=== PATIENT | female | born 1965 | race American Indian/Alaskan Native ===

== ENCOUNTER 2020-11-05 21:54 | Emergency (ER) | payer MEDICARE ==
[2020-11-06 01:56] LABS: Basophils % (Auto) 0.4 % (0.0-1.8); Eosinophils # (Auto) 0.1 K/mm3 (0.0-0.4); Eosinophils % (Auto) 0.6 % (0.0-4.3); Hematocrit 36.7 % (30.3-42.9); Hemoglobin 12.1 gm/dl (10.1-14.3); Lymphocytes # (Auto) 2.8 K/mm3 (1.2-5.4); Lymphocytes % (Auto) 23.7 % (13.4-35.0); Mean Corpuscular HGB Conc 33 % (30-34); Mean Corpuscular Volume 90 fl (79-97); Monocytes # (Auto) 0.6 K/mm3 (0.0-0.8); Monocytes % (Auto) 5.2 % (0.0-7.3); Platelet Count 350 K/mm3 (140-440); Red Cell Distribution Width 16.6 % (13.2-15.2)
[2020-11-06 02:13] LABS: Blood Urea Nitrogen 16 mg/dL (7-17); Calcium 9.6 mg/dL (8.4-10.2); Hemolysis Index 0
[2020-11-06 02:22] LABS: BUN/Creatinine Ratio 27
[2020-11-06 03:30] LABS: Bacteria,Urine 1+ /HPF (Negative); Bilirubin,Urine NEG (Negative); Blood,Urine SM (Negative); Color,Urine Straw (Yellow); Mucus,Urine FEW /HPF; Protein,Urine <15 mg/dL mg/dL (Negative); Urobilinogen,Urine < 2.0 mg/dL (<2.0)
[2020-11-06 03:44] LABS: Amphetamine Screen,Urine PRESUMPTIVE NEGATIVE; Benzodiazepines Screen,Urine PRESUMPTIVE NEGATIVE; Cannabinoid Screen,Urine PRESUMPTIVE NEGATIVE; Cocaine Screen,Urine PRESUMPTIVE POSITIVE; Methadone Screen,Urine PRESUMPTIVE NEGATIVE; Opiate Screen,Urine PRESUMPTIVE NEGATIVE
--- NOTE | 2020-11-06 09:26 | Emergency Department Report ---
ED General Adult HPI - General Chief complaint: Overdose Stated complaint: OVERDOSE PUI?: No Time Seen by Provider: 11/06/20 08:53 Source: patient, EMS ( EMS documentation not available at time of chart dictation ), RN notes reviewed, old records reviewed Mode of arrival: Stretcher Limitations: Other (Patient does not recall how she got to the emergency room.) - History of Present Illness Initial comments: The patient was evaluated in the emergency department for symptoms described in the history of present illness. He/she was evaluated in the context of the global COVID-19 pandemic, which necessitated consideration that the patient might be at risk for infection with the virus that causes COVID-19. Institutional protocols and algorithms that pertain to the evaluation of patients at risk for COVID-19 are in a state of rapid change based on information released by regulatory bodies including the CDC and federal and state organizations. These policies and algorithms were followed during the patient's care in the emergency department. Please note that these policies, procedures and recommendations changed on a rapid basis. This is a 55-year-old female. She typically follows at [facility]. She reportedly has a history of breast cancer and hypertension. Today, patient is brought to the hospital by emergency medical services as per nursing documentation. The patient was reportedly found unresponsive at home, was given Narcan by EMS, and woke up. She had admitted that she was smoking cocaine all day. White substance was noted around the patient. The patient is not currently accompanied by friends or family at this time for additional information, collateral information. The patient denies physical pain at this time. She tells me that she "think I passed out", but she is not certain. She denies travel, surgery, oral contraceptive use, posterior leg pain and leg swelling. She denies headache, neck pain, chest pain, abdominal pain and shortness of breath. She tells me that she was not overdosing on anything, that she is not homicidal or suicidal, and that she is not experiencing voices or hallucinations. She tells me that she lives at home with family. She also tells me that she is hungry, and would like to eat at this time. Patient had an echocardiogram at this hospital in 2014, showed EF of 65%. Patient also had CTA of the chest in 2015, negative for pulmonary embolism. -: Sudden Consistency: now resolved Improves with: none Worsens with: none - Related Data Previous Rx's Medication Instructions Recorded Last Taken Type amLODIPine 5 mg PO DAILY #30 tab 07/23/15 07/27/15 Rx Loratadine (Nf) [Claritin (Nf)] 10 mg PO QDAY tablet 08/03/15 Unknown Rx Metoprolol [Lopressor TAB] 25 mg PO BID #60 tablet 08/03/15 Unknown Rx amLODIPine 5 mg PO DAILY #30 tablet 08/03/15 Unknown Rx Amlodipine Besylate [Norvasc] 5 mg PO QDAY #30 tablet 11/06/20 Unknown Rx Naloxone HCl [Narcan Nasal Newport] 4 mg NS PRN PRN #2 spray 11/06/20 Unknown Rx Allergies Allergy/AdvReac Type Severity Reaction Status Date / Time cephalexin monohydrate Allergy Rash Verified 07/29/15 11:37 [From Keflex] ED Review of Systems ROS: Stated complaint: OVERDOSE Other details as noted in HPI Constitutional: denies: fever Eyes: denies: eye discharge ENT: denies: congestion Respiratory: denies: wheezing Cardiovascular: syncope. denies: chest pain Gastrointestinal: denies: abdominal pain Genitourinary: denies: dysuria Musculoskeletal: denies: back pain Neurological: confusion Psychiatric: denies: homicidal thoughts, suicidal thoughts Hematological/Lymphatic: denies: easy bleeding ED Past Medical Hx - Past Medical History Previous Medical History?: Yes Hx Hypertension: Yes Hx Congestive Heart Failure: No Hx Diabetes: No Hx of Cancer: Yes (Left Breast) Hx Asthma: No Hx COPD: No - Surgical History Past Surgical History?: No - Social History Smoking Status: Never Smoker Substance Use Type: None - Medications Home Medications: Home Medications Medication Instructions Recorded Confirmed Last Taken Type amLODIPine 5 mg PO DAILY #30 tab 07/23/15 07/27/15 07/27/15 Rx Loratadine (Nf) [Claritin (Nf)] 10 mg PO QDAY tablet 08/03/15 Unknown Rx Metoprolol [Lopressor TAB] 25 mg PO BID #60 tablet 08/03/15 Unknown Rx amLODIPine 5 mg PO DAILY #30 tablet 08/03/15 Unknown Rx Amlodipine Besylate [Norvasc] 5 mg PO QDAY #30 tablet 11/06/20 Unknown Rx Naloxone HCl [Narcan Nasal [place]] 4 mg NS PRN PRN #2 spray 11/06/20 Unknown Rx ED Physical Exam - General Limitations: No Limitations, Other (Patient does not remember specifically what happened) General appearance: alert, in no apparent distress - Head Head exam: Present: atraumatic, normocephalic - Eye Eye exam: Present: normal appearance, PERRL, EOMI, other (Visual acuity intact to finger counting, color perception, reading at a close distance). Absent: nystagmus - ENT ENT exam: Present: normal exam, normal orophraynx, mucous membranes moist, normal external ear exam - Neck Neck exam: Present: normal inspection, full ROM. Absent: tenderness, meningismus - Respiratory Respiratory exam: Present: normal lung sounds bilaterally. Absent: respiratory distress, wheezes, rales, rhonchi, stridor, decreased breath sounds - Cardiovascular Cardiovascular Exam: Present: regular rate, normal rhythm, normal heart sounds. Absent: bradycardia, tachycardia, irregular rhythm, systolic murmur, diastolic murmur, rubs, gallop - GI/Abdominal GI/Abdominal exam: Present: soft, normal bowel sounds. Absent: distended, tenderness, guarding, rebound, rigid, pulsatile mass - Extremities Exam Extremities exam: Present: normal inspection, full ROM, other (2+ pulses noted in the bilateral upper and lower extremities. There is no palpable cord. negative Homans sign. Muscular compartments are soft. The pelvis is stable.). Absent: pedal edema, calf tenderness - Back Exam Back exam: Present: normal inspection, full ROM. Absent: tenderness, CVA tenderness (R), CVA tenderness (L), paraspinal tenderness, vertebral tenderness - Neurological Exam Neurological exam: Present: alert, oriented X3, normal gait, other (No facial droop. Tongue midline. Extraocular movements intact bilaterally. Facial sensation intact to light touch in V1, V2, V3 distribution bilaterally. 5 and a 5 strength in 4 extremities. Sensation intact to light touch in 4 extremities .). Absent: motor sensory deficit - Psychiatric Psychiatric exam: Absent: homicidal ideation, suicidal ideation - Skin Skin exam: Present: warm, dry, intact, normal color. Absent: rash ED Course Vital Signs 11/06/20 11/06/20 11/06/20 01:01 09:16 10:00 Temperature 98.0 F Pulse Rate 95 H 93 H 124 H Respiratory 18 21 Rate Blood Pressure 132/79 177/100 178/100 Blood Pressure [Left] O2 Sat by Pulse 97 99 Oximetry 11/06/20 11/06/20 11/06/20 10:03 10:28 12:00 Temperature Pulse Rate 90 96 H Respiratory 18 18 16 Rate Blood Pressure 143/83 Blood Pressure 178/100 [Left] O2 Sat by Pulse 97 98 96 Oximetry 11/06/20 11/06/20 12:16 12:30 Temperature Pulse Rate 99 H 94 H Respiratory 15 16 Rate Blood Pressure 143/83 143/83 Blood Pressure [Left] O2 Sat by Pulse 98 97 Oximetry - Reevaluation(s) Reevaluation #1: 11/06/20 11:06 Differential diagnosis, including but not limited to: Overdose, accidental, resolved, orthostasis, vagal event, dehydration, intracranial injury Assessment and plan: 55-year-old female with chief complaint of resolved syncope, who is not currently tachycardic, tachypneic or hypoxic, who nursing team indicates was found unresponsive at home, given Narcan, woke up, and admitted to cocaine consumption. Patient has been observed in this department for hours. She is currently awake, oriented, clinically sober, walking with a steady gait, with a GCS of 15. There is no external sign of extracranial trauma, or neck pain, tenderness. However, given that we do not know if the patient had a fall or closed head injury, will obtain CT scan of the brain to exclude intracranial lesion. Patient counseled to not drive or operate motor vehicles for the next 6 months. Counseled to avoid recreational drug consumption. Patient will be discharged with a Narcan prescription. Patient is alert, oriented, and sober, and exhibits decision-making capacity at this time, and therefore, does not meet criteria for involuntary hold, confinement or 1013. Elevated blood pressure chronic. Patient has taken Norvasc in the past. She will be discharged with a Norvasc prescription, and given a dose of Norvasc while here in the emergency room. She does not appear to be acutely decompensated from a hypertension perspective. 11/06/20 11:09 11/06/20 11:[address] scan of the brain negative for acute findings. No further events noted. Resting comfortably in stretcher, and in no acute distr ess. Suitable for discharge at this time. ED Medical Decision Making - Lab Data Result diagrams: 11/06/20 01:41 11/06/20 01:41 Vital Signs 11/06/20 11/06/20 11/06/20 01:01 09:16 10:03 Temperature 98.0 F Pulse Rate 95 H 93 H Respiratory 18 21 18 Rate Blood Pressure 132/79 177/100 O2 Sat by Pulse 97 99 97 Oximetry Lab Results 11/06/20 11/06/20 11/06/20 Range/Units 01:26 01:26 01:41 WBC (4.5-11.0) K/mm3 RBC (3.65-5.03) M/mm3 Hgb (10.1-14.3) gm/dl Hct (30.3-42.9) % MCV (79-97) fl MCH (28-32) pg MCHC (30-34) % RDW (13.2-15.2) % Plt Count (140-440) K/mm3 Lymph % (Auto) (13.4-35.0) % Lares % (Auto) (0.0-7.3) % Eos % (Auto) (0.0-4.3) % Baso % (Auto) (0.0-1.8) % Lymph # (Auto) (1.2-5.4) K/mm3 Lares # (Auto) (0.0-0.8) K/mm3 Eos # (Auto) (0.0-0.4) K/mm3 Baso # (Auto) (0.0-0.1) K/mm3 Seg Neutrophils % (40.0-70.0) % Seg Neutrophils # (1.8-7.7) K/mm3 Sodium (137-145) mmol/L Potassium (3.6-5.0) mmol/L Chloride (98-107) mmol/L Carbon Dioxide (22-30) mmol/L Anion Gap mmol/L BUN (7-17) mg/dL Creatinine (0.6-1.2) mg/dL Estimated GFR ml/min BUN/Creatinine Ratio % Glucose (65-100) mg/dL Calcium (8.4-10.2) mg/dL Urine Color Straw (Yellow) Urine Turbidity Clear (Clear) Urine pH 5.0 (5.0-7.0) Ur Specific Newell 1.010 (1.003-1.030) Urine Protein <15 mg/dl (Negative) mg/dL Urine Glucose (UA) Neg (Negative) mg/dL Urine Ketones Neg (Negative) mg/dL Urine Blood Sm (Negative) Urine Nitrite Neg (Negative) Urine Bilirubin Neg (Negative) Urine Urobilinogen < 2.0 (<2.0) mg/dL Ur Leukocyte Esterase Tr (Negative) Urine WBC (Auto) 5.0 (0.0-6.0) /HPF Urine RBC (Auto) 3.0 (0.0-6.0) /HPF U Epithel Cells (Auto) 3.0 (0-13.0) /HPF Urine Bacteria (Auto) 1+ (Negative) /HPF Urine Mucus Few /HPF Salicylates < 0.3 L (2.8-20.0) mg/dL Urine Opiates Screen Presumptive negative Urine Methadone Screen Presumptive negative Acetaminophen (10.0-30.0) ug/mL Ur Barbiturates Screen Presumptive negative Ur Phencyclidine Scrn Presumptive negative Ur Amphetamines Screen Presumptive negative U Benzodiazepines Scrn Presumptive negative Urine Cocaine Screen Presumptive positive U Marijuana (THC) Screen Presumptive negative Drugs of Abuse Note Disclamer Plasma/Serum Alcohol (0-0.07) % 11/06/20 11/06/20 11/06/20 Range/Units 01:41 01:41 01:41 WBC (4.5-11.0) K/mm3 RBC (3.65-5.03) M/mm3 Hgb (10.1-14.3) gm/dl Hct (30.3-42.9) % MCV (79-97) fl MCH (28-32) pg MCHC (30-34) % RDW (13.2-15.2) % Plt Count (140-440) K/mm3 Lymph % (Auto) (13.4-35.0) % Lares % (Auto) (0.0-7.3) % Eos % (Auto) (0.0-4.3) % Baso % (Auto) (0.0-1.8) % Lymph # (Auto) (1.2-5.4) K/mm3 Lares # (Auto) (0.0-0.8) K/mm3 Eos # (Auto) (0.0-0.4) K/mm3 Baso # (Auto) (0.0-0.1) K/mm3 Seg Neutrophils % (40.0-70.0) % Seg Neutrophils # (1.8-7.7) K/mm3 Sodium 136 L (137-145) mmol/L Potassium 3.5 L (3.6-5.0) mmol/L Chloride 95.9 L (98-107) mmol/L Carbon Dioxide 23 (22-30) mmol/L Anion Gap 21 mmol/L BUN 16 (7-17) mg/dL Creatinine 0.6 (0.6-1.2) mg/dL Estimated GFR > 60 ml/min BUN/Creatinine Ratio 27 % Glucose 125 H (65-100) mg/dL Calcium 9.6 (8.4-10.2) mg/dL Urine Color (Yellow) Urine Turbidity (Clear) Urine pH (5.0-7.0) Ur Specific Newell (1.003-1.030) Urine Protein (Negative) mg/dL Urine Glucose (UA) (Negative) mg/dL Urine Ketones (Negative) mg/dL Urine Blood (Negative) Urine Nitrite (Negative) Urine Bilirubin (Negative) Urine Urobilinogen (<2.0) mg/dL Ur Leukocyte Esterase (Negative) Urine WBC (Auto) (0.0-6.0) /HPF Urine RBC (Auto) (0.0-6.0) /HPF U Epithel Cells (Auto) (0-13.0) /HPF Urine Bacteria (Auto) (Negative) /HPF Urine Mucus /HPF Salicylates (2.8-20.0) mg/dL Urine Opiates Screen Urine Methadone Screen Acetaminophen 5.0 L (10.0-30.0) ug/mL Ur Barbiturates Screen Ur Phencyclidine Scrn Ur Amphetamines Screen U Benzodiazepines Scrn Urine Cocaine Screen U Marijuana (THC) Screen Drugs of Abuse Note Plasma/Serum Alcohol 0.02 (0-0.07) % 11/06/20 Range/Units 01:41 WBC 11.8 H (4.5-11.0) K/mm3 RBC 4.10 (3.65-5.03) M/mm3 Hgb 12.1 (10.1-14.3) gm/dl Hct 36.7 (30.3-42.9) % MCV 90 (79-97) fl MCH 30 (28-32) pg MCHC 33 (30-34) % RDW 16.6 H (13.2-15.2) % Plt Count 350 (140-440) K/mm3 Lymph % (Auto) 23.7 (13.4-35.0) % Lares % (Auto) 5.2 (0.0-7.3) % Eos % (Auto) 0.6 (0.0-4.3) % Baso % (Auto) 0.4 (0.0-1.8) % Lymph # (Auto) 2.8 (1.2-5.4) K/mm3 Lares # (Auto) 0.6 (0.0-0.8) K/mm3 Eos # (Auto) 0.1 (0.0-0.4) K/mm3 Baso # (Auto) 0.0 (0.0-0.1) K/mm3 Seg Neutrophils % 70.1 H (40.0-70.0) % Seg Neutrophils # 8.3 H (1.8-7.7) K/mm3 Sodium (137-145) mmol/L Potassium (3.6-5.0) mmol/L Chloride (98-107) mmol/L Carbon Dioxide (22-30) mmol/L Anion Gap mmol/L BUN (7-17) mg/dL Creatinine (0.6-1.2) mg/dL Estimated GFR ml/min BUN/Creatinine Ratio % Glucose (65-100) mg/dL Calcium (8.4-10.2) mg/dL Urine Color (Yellow) Urine Turbidity (Clear) Urine pH (5.0-7.0) Ur Specific Newell (1.003-1.030) Urine Protein (Negative) mg/dL Urine Glucose (UA) (Negative) mg/dL Urine Ketones (Negative) mg/dL Urine Blood (Negative) Urine Nitrite (Negative) Urine Bilirubin (Negative) Urine Urobilinogen (<2.0) mg/dL Ur Leukocyte Esterase (Negative) Urine WBC (Auto) (0.0-6.0) /HPF Urine RBC (Auto) (0.0-6.0) /HPF U Epithel Cells (Auto) (0-13.0) /HPF Urine Bacteria (Auto) (Negative) /HPF Urine Mucus /HPF Salicylates (2.8-20.0) mg/dL Urine Opiates Screen Urine Methadone Screen Acetaminophen (10.0-30.0) ug/mL Ur Barbiturates Screen Ur Phencyclidine Scrn Ur Amphetamines Screen U Benzodiazepines Scrn Urine Cocaine Screen U Marijuana (THC) Screen Drugs of Abuse Note Plasma/Serum Alcohol (0-0.07) % - EKG Data -: EKG Interpreted by Tx EKG shows normal: sinus rhythm Rate: normal - EKG Data 11/06/20 11:06 Sinus rhythm, 89 bpm, normal axis, QTC 468 ms, left ventricular hypertrophy, and minimal motion artifact. This EKG is not a STEMI. - Radiology Data Radiology results: pending, report reviewed, image reviewed Print Report Referring Physician: AARON ALONSO Patient Name: ALVIN SUTHERLAND Date of : 1965 Sex: Female Report Date: 2020-11-06 Report Status: Finalized Findings [facility] [address] [id number] Cat Scan Report Signed Patient: ALVIN SUTHERLAND MR#: [id number] : 1965 Acct:[id number] Age/Sex: 55 / F ADM Date: 11/05/20 Loc: ED Attending Dr: Ordering Physician: AARON ALONSO MD Date of Service: 11/06/20 Procedure(s): CT head/brain wo con Accession Number(s): [id number] cc: AARON ALONSO MD CT head/brain wo con INDICATION / CLINICAL INFORMATION: 55 years Female; syncope, uncertain if closed head injury. TECHNIQUE: Routine CT head without contrast. All CT scans at this location are performed using CT dose reduction for ALARA by means of automated exposure control. COMPARISON: None. FINDINGS: BRAIN / INTRACRANIAL CONTENTS: No acute hemorrhage, mass effect, midline shift, hydrocephalus, or acute, large territorial infarct. No signs of significant atrophy or chronic infarct. Minimal, nonspecific white matter disease suggested. CRANIOCERVICAL JUNCTION: No significant abnormality. ORBITS: No significant abnormality of visualized orbits. SINUSES / MASTOIDS: No significant abnormality in the visualized paranasal sinuses or mastoid air cells. ADDITIONAL FINDINGS: None. IMPRESSION: 1. No focal mass, hemorrhage, hydrocephalus, or acute, large territorial infarct. Signer Name: Ramirez Lucia MD, III Signed: 11/06/2020 11:18 AM Workstation Name: [email or web address] Transcribed By: HR Dictated By: Ramirez uLcia MD Electronically Authenticated By: Ramirez Lucia MD Signed Date/Time: 11/06/201117 DD/ 16 Critical care attestation.: If time is entered above; I have spent that time in minutes in the direct care of this critically ill patient, excluding procedure time. ED Disposition Clinical Impression: History of drug overdose, History of syncope, Elevated blood pressure reading Disposition: DC-01 TO HOME OR SELFCARE Is pt being admited?: No Does the pt Need Aspirin: No Condition: Stable Additional Instructions: Please follow-up with a primary care doctor or curing press operator within the next week. Do not drive or operate motor vehicles for the next 6 months, or until cleared to do so by a primary care doctor or curing press operator. Drink 4 to 5 cups of water per day indefinitely, and make certain to eat at least 3-4 times per day indefinitely. Recommend that patient avoid consumption of cocaine, alcohol, crack, and recreational drugs. Consumption of the aforementioned may cause , disability, paralysis, loss of quality of life. Use the Narcan medication as needed for symptoms of narcotic overdose, including respiratory depression, sleepiness, confusion. Please return to the emergency room right away with new pain, worsened pain, migration of pain, projectile vomiting, change in mental status, confusion, inability to tolerate liquid feeds. Patient was found to have elevated blood pressure while here in the emergency room. Please take the blood pressure medication as directed. Please follow-up with a primary care doctor or curing press operator for high blood pressure within the next 2 weeks. Long-term complications of hypertension and elevated blood pressure include stroke, heart attack, disability, paralysis, permanent loss of quality of life. Prescriptions: Naloxone HCl [Narcan Nasal Newport] 4 mg NS PRN PRN #2 spray PRN Reason: Opioid Reversal Amlodipine Besylate [Norvasc] 5 mg PO QDAY #30 tablet Referrals: ALKA ESTEVEZ MD [Primary Care Provider] - 3-5 Days [facility] [Provider Group] - 3-5 Days [facility] [Outside] - 3-5 Days
[2020-11-06] MEDS ORDERED: amLODIPine 5 MG TAB PO ONE (09:43)
--- NOTE | 2020-11-06 11:23 | Cat Scan Report ---
CT head/brain wo con INDICATION / CLINICAL INFORMATION: 55 years Female; syncope, uncertain if closed head injury. TECHNIQUE: Routine CT head without contrast. All CT scans at this location are performed using CT dos e reduction for ALARA by means of automated exposure control. COMPARISON: None. FINDINGS: BRAIN / INTRACRANIAL CONTENTS: No acute hemorrhage, mass effect, midline shift, hydrocephalus, or acu te, large territorial infarct. No signs of significant atrophy or chronic infarct. Minimal, nonspecif ic white matter disease suggested. CRANIOCERVICAL JUNCTION: No significant abnormality. ORBITS: No significant abnormality of visualized orbits. SINUSES / MASTOIDS: No significant abnormality in the visualized paranasal sinuses or mastoid air mile ls. ADDITIONAL FINDINGS: None. IMPRESSION: 1. No focal mass, hemorrhage, hydrocephalus, or acute, large territorial infarct. Signer Name: Ramirez Lucia MD, III Signed: 11/06/2020 11:18 AM Workstation Name: [email or web address]
[2020-11-06] MEDS ORDERED: amLODIPine 5 MG TAB ONE (11:52)
[2020-11-06 13:14] VITALS: BP 143/83
== END 2020-11-06 13:14 | disposition home or self-care (01) ==
LOC: ED 21:54
DX: T65.91XA Toxic effect of unspecified substance, accidental (unintentional), initial encounter (principal); R55 Syncope and collapse; I10 Essential (primary) hypertension; Z79.899 Other long term (current) drug therapy; Z88.8 Allergy status to other drugs, medicaments and biological substances; Y92.89 Other specified places as the place of occurrence of the external cause
CPT/HCPCS: 36415; 70450; 80048; 80307; 80320; 81001; 85025; 93005; G0480

== ENCOUNTER 2020-12-23 16:30 | Emergency (ER) | payer MEDICARE ==
--- NOTE | 2020-12-23 16:44 | Event Note ---
ED Screening Note Date of service: 12/23/20 (n) Time: 16:41 ED Screening Note: This 55-year-old female who is a poor historian comes into the ED stating that she has been sick and unable to sleep for the past week. Patient states that she is diagnosed with breast cancer and hypertension. Patient states she feels weak and she is sick. Patient denies any pain, fever. drowsy This initial assessment/diagnostic orders/clinical plan/treatment(s) is/are subject to change based on patients health status, clinical progression and re- assessment by fellow clinical providers in the ED. Further treatment and workup at subsequent clinical providers discretion. Patient/guardian urged not to elope from the ED as their condition may be serious if not clinically assessed and managed. Initial orders include: Labs, urine
[2020-12-23 17:29] LABS: Basophils % (Auto) 0.2 % (0.0-1.8); Eosinophils % (Auto) 0.2 % (0.0-4.3); Hematocrit 37.1 % (30.3-42.9); Hemoglobin 12.2 gm/dl (10.1-14.3); Lymphocytes # (Auto) 2.7 K/mm3 (1.2-5.4); Lymphocytes % (Auto) 27.3 % (13.4-35.0); Mean Corpuscular HGB Conc 33 % (30-34); Mean Corpuscular Volume 91 fl (79-97); Monocytes # (Auto) 0.7 K/mm3 (0.0-0.8); Platelet Count 302 K/mm3 (140-440); Red Blood Count 4.09 M/mm3 (3.65-5.03); Red Cell Distribution Width 17.2 % (13.2-15.2)
[2020-12-23 17:43] LABS: INR 0.91 (0.87-1.13)
[2020-12-23 17:49] LABS: Alanine Aminotransferase 16 units/L (7-56); Albumin 4.4 g/dL (3.9-5); BUN/Creatinine Ratio 23; Blood Urea Nitrogen 25 mg/dL (7-17); Calcium 9.1 mg/dL (8.4-10.2); Hemolysis Index 2
[2020-12-23 17:50] LABS: HCG Qualitative,Urine Negative (Negative)
[2020-12-23 17:56] LABS: Bacteria,Urine 2+ /HPF (Negative); Hyaline Casts,Urine 9 /LPF; Mucus,Urine FEW /HPF
[2020-12-23 17:57] LABS: Bilirubin,Urine NEG (Negative); Blood,Urine SM (Negative); Color,Urine Amber (Yellow); Urobilinogen,Urine < 2.0 mg/dL (<2.0)
[2020-12-23] MEDS ORDERED: SODIUM CHLORIDE 0.9% 1000 ML 1,000 ML IV ONE (21:03)
--- NOTE | 2020-12-23 21:22 | Emergency Department Report ---
- General Chief complaint: Weakness Stated complaint: WEAKNESS PUI?: No Time Seen by Provider: 12/23/20 21:02 Source: patient, EMS Mode of arrival: Wheelchair Limitations: No Limitations - History of Present Illness Initial comments: Patient is a 55-year-old female that presents emergency room with complaints of weakness and fatigue. Patient states that she has generalized weakness. Patient states that this has been going on for 7 days. Patient states that 9 days ago she was seen at [place] and diagnosed with UTI and placed on Bactrim. Patient states she is not been able to sleep very good lately for the last 5 days. Patient denies chest pain. Patient denies pain. Patient denies abdominal pain. Patient denies shortness of breath. Patient denies headache. Patient denies dizziness. Patient complains of urinary frequency and burning when she urinates. Patient states she is compliant with her Bactrim. Patient denies recent travel. Patient denies recent international travel. Patient denies exposure to the novel coronavirus. Patient denies sick contacts. Patient denies fever and chills. Patient denies cough. Patient denies diar elliot. Patient denies coming in contact with anybody with symptoms of the novel coronavirus. MD Complaint: generalized weakness -: Gradual Location: generalized Severity: moderate Severity scale (0 -10): 0 Consistency: constant Improves with: rest Worsens with: movement Associated Symptoms: dysuria. denies: chest pain, confusion, dark stools, diaphoresis, easy bruising, fever/chills, headaches, loss of appetite, nausea/vomiting, myalgias, rash, shortness of breath, syncope - Related Data Previous Rx's Medication Instructions Recorded Last Taken Type amLODIPine 5 mg PO DAILY #30 tab 07/23/15 07/27/15 Rx Loratadine (Nf) [Claritin (Nf)] 10 mg PO QDAY tablet 08/03/15 Unknown Rx Metoprolol [Lopressor TAB] 25 mg PO BID #60 tablet 08/03/15 Unknown Rx amLODIPine 5 mg PO DAILY #30 tablet 08/03/15 Unknown Rx Amlodipine Besylate [Norvasc] 5 mg PO QDAY #30 tablet 11/06/20 Unknown Rx Naloxone HCl [Narcan Nasal [place]] 4 mg NS PRN PRN #2 spray 11/06/20 Unknown Rx Ciprofloxacin HCl [Ciprofloxacin 500 mg PO Q12HR 10 Days #20 tab 12/23/20 Unknown Rx TAB] Allergies Allergy/AdvReac Type Severity Reaction Status Date / Time cephalexin monohydrate Allergy Rash Verified 12/23/20 16:32 [From Keflex] ED Review of Systems ROS: Stated complaint: WEAKNESS Other details as noted in HPI Constitutional: malaise, weakness. denies: chills, fever Eyes: denies: eye pain, eye discharge, vision change ENT: denies: ear pain, throat pain Respiratory: denies: cough, shortness of breath, wheezing Cardiovascular: denies: chest pain, palpitations Endocrine: no symptoms reported Gastrointestinal: denies: abdominal pain, nausea, diarrhea Genitourinary: denies: urgency, dysuria, discharge Musculoskeletal: denies: back pain, joint swelling, arthralgia Skin: denies: rash, lesions Neurological: as per HPI, weakness. denies: headache, paresthesias Psychiatric: denies: anxiety, depression Hematological/Lymphatic: denies: easy bleeding, easy bruising ED Past Medical Hx - Past Medical History Previous Medical History?: Yes Hx Hypertension: Yes Hx Congestive Heart Failure: No Hx Diabetes: No Hx of Cancer: Yes (BREAST) Hx Asthma: No Hx COPD: No Additional medical history: KIDNEY INFECTION - Surgical History Past Surgical History?: No - Family History Family history: no significant - Social History Smoking Status: Never Smoker Substance Use Type: None - Medications Home Medications: Home Medications Medication Instructions Recorded Confirmed Last Taken Type amLODIPine 5 mg PO DAILY #30 tab 07/23/15 07/27/15 07/27/15 Rx Loratadine (Nf) [Claritin (Nf)] 10 mg PO QDAY tablet 08/03/15 Unknown Rx Metoprolol [Lopressor TAB] 25 mg PO BID #60 tablet 08/03/15 Unknown Rx amLODIPine 5 mg PO DAILY #30 tablet 08/03/15 Unknown Rx Amlodipine Besylate [Norvasc] 5 mg PO QDAY #30 tablet 11/06/20 Unknown Rx Naloxone HCl [Narcan Nasal [place]] 4 mg NS PRN PRN #2 spray 11/06/20 Unknown Rx Ciprofloxacin HCl [Ciprofloxacin 500 mg PO Q12HR 10 Days #20 tab 12/23/20 Unk nown Rx TAB] ED Physical Exam - General Limitations: No Limitations General appearance: alert, in no apparent distress - Head Head exam: Present: atraumatic, normocephalic - Eye Eye exam: Present: normal appearance, PERRL Pupils: Present: normal accommodation - ENT ENT exam: Present: mucous membranes moist - Neck Neck exam: Present: normal inspection - Respiratory Respiratory exam: Present: normal lung sounds bilaterally. Absent: respiratory distress, wheezes, rales - Cardiovascular Cardiovascular Exam: Present: regular rate, normal rhythm. Absent: systolic murmur, diastolic murmur, rubs, gallop - GI/Abdominal GI/Abdominal exam: Present: soft, normal bowel sounds. Absent: distended, tenderness, guarding - Rectal Rectal exam: Present: deferred - Extremities Exam Extremities exam: Present: normal inspection, full ROM - Back Exam Back exam: Present: normal inspection, full ROM. Absent: tenderness, CVA tenderness (R), CVA tenderness (L), muscle spasm, paraspinal tenderness, vertebral tenderness - Neurological Exam Neurological exam: Present: alert, oriented X3, CN II-XII intact, normal gait - Psychiatric Psychiatric exam: Present: normal affect, normal mood - Skin Skin exam: Present: warm, dry, intact, normal color. Absent: rash - Assessment Assessment Interval: Baseline - Level of Consciousness 1a. Level of Consciousness: alert/keenly responsive - LOC Questions 1b. LOC Questions: answers both correctly - LOC Command 1c. LOC Commands: performs tasks correctly - Best Gaze 2. Best Gaze: normal - Visual 3. Visual: no visual loss - Facial Palsy 4. Facial Palsy: normal symmetrical movement - Motor Arm 5a. Motor Arm Left: no drift 5b. Motor Arm Right: no drift - Motor Leg 6a. Motor Leg Left: no drift 6b. Motor Leg Right: no drift - Limb Ataxia 7. Limb Ataxia: absent - Sensory 8. Sensory: normal - Best Language 9. Best Language: no aphasia - Dysarthria 10. Dysarthria: normal - Extinction and Inattention 11. Extinction/Inattention: no abnormality - Scoring Total Score: 0 Stroke Severity: No Stroke Symptoms ED Course Vital Signs 12/23/20 12/23/20 16:36 22:06 Temperature 97.9 F 98.3 F Pulse Rate 116 H 96 H Respiratory 18 18 Rate Blood Pressure 120/72 133/76 [Right] O2 Sat by Pulse 98 100 Oximetry - Reevaluation(s) Reevaluation #1: Patient states he is feeling much better. Patient denies pain. Patient states her weakness has resolved. Patient ambulatory in the ER. I discussed all results and clinical findings with patient. I discussed plan of care with patient. Patient agrees with plan of care. Patient is stable for discharge. Patient will be discharged home. Patient given discharge instructions. Patient voiced understanding of discharge instructions. 12/23/20 23:23 ED Medical Decision Making - Lab Data Result diagrams: 12/23/20 17:10 12/23/20 17:10 - Medical Decision Making Patient is a 55-year-old female that presents emergency room with generalized weakness and fatigue. Patient states she has not been sleeping very well. Patient had labs done which were essentially unremarkable except for the uti. Patient given IV fluids and antibiotic. Patient states that she feels much better. Patient did not have any tenderness to palpation on exam or complaints of pain. Patient responded well to treatment. Patient is stable for discharge. Patient will be discharged home. - Differential Diagnosis Weakness, fatigue, dehydration, insomnia, UTI Critical care attestation.: If time is entered above; I have spent that time in minutes in the direct care of this critically ill patient, excluding procedure time. ED Disposition Clinical Impression: Weakness, Dehydration UTI (urinary tract infection) Qualifiers: Urinary tract infection type: acute cystitis Hematuria presence: with hematuria Qualified Code(s): N30.01 - Acute cystitis with hematuria Disposition: TO HOME OR SELFCARE Is pt being admited?: No Does the pt Need Aspirin: No Condition: Stable Instructions: Urinary Tract Infection, Adult, [id number], Weakness, Dehydration, Adult, Antibiotic Medicine, Adult, [id number] Additional Instructions: Patient to follow-up with primary care in 2 to 3 days. Patient to follow-up with urologist in 2 to 3 days. Patient to rest. Patient to increase water. Patient to avoid strenuous exercise or heavy lifting until cleared by primary care. Patient to take Tylenol or ibuprofen as needed for pain. Patient to take meds as directed. Patient to return to the ER if condition worsens, changes or new symptoms arise. Patient to stop Bactrim. Prescriptions: Ciprofloxacin HCl [Ciprofloxacin TAB] 500 mg PO Q12HR 10 Days #20 tab Referrals: PRIMARY CARE, [Primary Care Provider] - 2-3 Days Time of Disposition: 23:27
[2020-12-23 21:47] LABS: Amphetamine Screen,Urine Negative; Cannabinoid Screen,Urine Negative; Cocaine Screen,Urine Negative; Methadone Screen,Urine Negative; Opiate Screen,Urine Negative
[2020-12-23 22:25] LABS: Benzodiazepines Screen,Urine Positive
[2020-12-24 00:03] VITALS: BP 149/95
== END 2020-12-23 23:48 | disposition home or self-care (01) ==
LOC: ED 16:30
DX: N39.0 Urinary tract infection, site not specified (principal); R53.1 Weakness; E86.0 Dehydration; I10 Essential (primary) hypertension; Z79.2 Long term (current) use of antibiotics; Z79.899 Other long term (current) drug therapy; Z88.8 Allergy status to other drugs, medicaments and biological substances
CPT/HCPCS: 36415; 80053; 80307; 81001; 81025; 82550; 84484; 85025; 85610; 96365; 99284; J1956; J7030

== ENCOUNTER 2021-07-22 13:28 | Emergency (ER) | payer MEDICARE ==
[2021-07-22 16:34] VITALS: BP 195/105
[2021-07-23] MEDS ORDERED: ACETAMINOPHEN 500 MG TAB PO ONE (00:55)
[2021-07-23 01:28] LABS: Alanine Aminotransferase 11 units/L (7-56); Albumin 4.2 g/dL (3.9-5); Blood Urea Nitrogen 9 mg/dL (7-17); Hemolysis Index 1
[2021-07-23 01:30] LABS: BUN/Creatinine Ratio 18
[2021-07-23 01:31] LABS: Basophils # (Auto) 0.1 K/mm3 (0.0-0.1); Basophils % (Auto) 0.7 % (0.0-1.8); Eosinophils # (Auto) 0.3 K/mm3 (0.0-0.4); Eosinophils % (Auto) 1.9 % (0.0-4.3); Hematocrit 33.3 % (30.3-42.9); Hemoglobin 11.1 gm/dl (10.1-14.3); Lymphocytes # (Auto) 3.9 K/mm3 (1.2-5.4); Lymphocytes % (Auto) 27.6 % (13.4-35.0); Mean Corpuscular HGB Conc 33 % (30-34); Mean Corpuscular Volume 89 fl (79-97); Monocytes # (Auto) 0.8 K/mm3 (0.0-0.8); Monocytes % (Auto) 5.6 % (0.0-7.3); Platelet Count 490 K/mm3 (140-440); Red Blood Count 3.75 M/mm3 (3.65-5.03); Red Cell Distribution Width 17.1 % (13.2-15.2)
[2021-07-23] MEDS ORDERED: SULFAMETHOXAZOLE/TRIMETHOPRIM 800/160MG DS TAB PO ONE (02:09)
[2021-07-23] MEDS ORDERED: CLINDAMYCIN 300 MG CAP PO ONE (02:09)
--- NOTE | 2021-07-23 06:06 | Emergency Department Report ---
ED General Adult HPI - General Chief complaint: Skin/Abscess/Foreign Body Stated complaint: knot in rt breast,chills Source: patient Mode of arrival: Ambulatory Limitations: No Limitations - History of Present Illness Initial comments: Patient is a 56-year-old -[place] female with a history of hypertension and left breast cancer s/p partial mastectomy who presents to the ED with complaint of acute onset persistent severe painful swollen right breast for the last 3 weeks. Patient states that the swelling and the pain got worse in the last 3 days. Patient states that pain is especially worse with movement or palpation of the right breast. Patient denies fever, chills, dizziness, syncope, shortness of breath, abdominal pain, back pain, traumatic injury, neck pain, nausea and vomiting, numbness and tingling or weakness of upper extremities bilaterally. MD Complaint: Right breast pain and swelling -: Gradual, week(s) (3) Location: chest (right breast pain and swelling) Radiation: non-radiation Severity scale (0 -10): 7 Quality: aching, sharp Consistency: constant Improves with: none Worsens with: movement Associated Symptoms: denies other symptoms, chest pain (right breast pain and swelling), rash (swollen painful mass on right breast). denies: confusion, cough, diaphoresis, fever/chills, loss of appetite, malaise, nausea/vomiting, seizure, shortness of breath, syncope, weakness, other Treatments Prior to Arrival: none - Related Data Previous Rx's Medication Instructions Recorded Last Taken Type amLODIPine 5 mg PO DAILY #30 tab 07/23/15 07/27/15 Rx Loratadine (Nf) [Claritin (Nf)] 10 mg PO QDAY tablet 08/03/15 Unknown Rx Metoprolol [Lopressor TAB] 25 mg PO BID #60 tablet 08/03/15 Unknown Rx amLODIPine 5 mg PO DAILY #30 tablet 08/03/15 Unknown Rx Amlodipine Besylate [Norvasc] 5 mg PO QDAY #30 tablet 11/06/20 Unknown Rx Naloxone HCl [Narcan Nasal [place]] 4 mg NS PRN PRN #2 spray 11/06/20 Unknown Rx Ciprofloxacin HCl [Ciprofloxacin 500 mg PO Q12HR 10 Days #20 tab 12/23/20 Unknown Rx TAB] Allergies Allergy/AdvReac Type Severity Reaction Status Date / Time cephalexin monohydrate Allergy Rash Verified 12/23/20 16:32 [From Keflex] ED Review of Systems ROS: Stated complaint: knot in rt breast,chills Other details as noted in HPI Constitutional: denies: chills, fever Eyes: denies: eye pain, eye discharge, vision change ENT: denies: ear pain, throat pain Respiratory: denies: cough, shortness of breath, wheezing Cardiovascular: other (right breast pain due to a palpable mass). denies: chest pain, palpitations Endocrine: no symptoms reported Gastrointestinal: denies: abdominal pain, nausea, vomiting, diarrhea Genitourinary: denies: urgency, dysuria, discharge Musculoskeletal: denies: back pain, joint swelling, arthralgia Skin: other (swollen painful right breast from right breast mass). denies: rash, lesions Neurological: denies: headache, weakness, paresthesias Psychiatric: denies: anxiety, depression Hematological/Lymphatic: denies: easy bleeding, easy bruising ED Past Medical Hx - Past Medical History Previous Medical History?: Yes Hx Hypertension: Yes Hx Congestive Heart Failure: No Hx Diabetes: No Hx Asthma: No Hx COPD: No Additional medical history: Left breast cancer; Kidney infection - Surgical History Past Surgical History?: Yes Additional Surgical History: lumps on left breast - Social History Smoking Status: Never Smoker Substance Use Type: None - Medications Home Medications: Home Medications Medication Instructions Recorded Confirmed Last Taken Type amLODIPine 5 mg PO DAILY #30 tab 07/23/15 07/27/15 07/27/15 Rx Loratadine (Nf) [Claritin (Nf)] 10 mg PO QDAY tablet 08/03/15 Unknown Rx Metoprolol [Lopressor TAB] 25 mg PO BID #60 tablet 08/03/15 Unknown Rx amLODIPine 5 mg PO DAILY #30 tablet 08/03/15 Unknown Rx Amlodipine Besylate [Norvasc] 5 mg PO QDAY #30 tablet 11/06/20 Unknown Rx Naloxone HCl [Narcan Nasal [place]] 4 mg NS PRN PRN #2 spray 11/06/20 Unknown Rx Ciprofloxacin HCl [Ciprofloxacin 500 mg PO Q12HR 10 Days #20 tab 12/23/20 Unknown Rx TAB] ED Physical Exam - General Limitations: No Limitations General appearance: alert, in no apparent distress, anxious - Head Head exam: Present: atraumatic, normocephalic, normal inspection - Eye Eye exam: Present: normal appearance, PERRL, EOMI Pupils: Present: normal accommodation - ENT ENT exam: Present: normal exam, normal orophraynx, mucous membranes moist, TM's normal bilaterally, normal external ear exam - Neck Neck exam: Present: normal inspection, full ROM. Absent: tenderness - Respiratory Respiratory exam: Present: normal lung sounds bilaterally, chest wall tenderness (Palpable severe right breast tenderness due to a swollen nonfluctuant mass with swelling), other (Female RN Ms Adair present during breast exam). Absent: respiratory distress, wheezes, rales, rhonchi, accessory muscle use, decreased breath sounds, prolonged expiratory - Cardiovascular Cardiovascular Exam: Present: regular rate, normal rhythm, normal heart sounds. Absent: systolic murmur, diastolic murmur, rubs, gallop - GI/Abdominal GI/Abdominal exam: Present: soft, normal bowel sounds. Absent: tenderness, guarding, rebound, hyperactive bowel sounds, hypoactive bowel sounds, organomegaly, mass - Extremities Exam Extremities exam: Present: normal inspection, full ROM, normal capillary refill - Back Exam Back exam: Present: normal inspection, full ROM. Absent: tenderness, CVA tenderness (R), CVA tenderness (L), muscle spasm, paraspinal tenderness, vertebral tenderness - Neurological Exam Neurological exam: Present: alert, oriented X3, CN II-XII intact, normal gait, reflexes normal - Psychiatric Psychiatric exam: Present: normal affect, normal mood - Skin Skin exam: Present: warm, dry, intact, normal color. Absent: rash, cyanosis, erythema, urticaria, petechiae, pallor, abrasion, other ED Course Vital Signs 07/22/21 16:32 Temperature 98.1 F Pulse Rate 99 H Respiratory 18 Rate Blood Pressure 195/105 [Right] O2 Sat by Pulse 99 Oximetry ED Medical Decision Making - Lab Data Result diagrams: 07/23/21 00:56 07/23/21 00:56 - Radiology Data Radiology results: report reviewed, image reviewed - Medical Decision Making This is a 56-year-old -[place] female with a history of hypertension and left breast cancer s/p partial mastectomy who presents to the ED with complaint of acute onset persistent severe painful swollen right breast for the last 3 weeks. Patient states that the swelling and the pain got worse in the last 3 days. Patient states that pain is especially worse with movement or palpation of the right breast. In the ED, patient is alert and oriented x3 and is not in any distress with normal vital signs. Lab test results were reviewed and showed acute leukocytosis of 14,900 and thrombocytosis of 490. Rest of the lab test results were nonactionable. Patient was treated for pain in the ED and also given oral antibiotics for suspected mastitis versus neoplasm versus benign cyst. Right breast ultrasound report is pending. Patient eloped from the ED pr ior to the report being released and stated that she would go to the medical records to obtain her imaging report. - Differential Diagnosis Breast neoplasm; cellulitis; cutaneous abscess; mastitis Critical care attestation.: If time is entered above; I have spent that time in minutes in the direct care of this critically ill patient, excluding procedure time. ED Disposition Clinical Impression: Secondary thrombocytosis, Mass overlapping multiple quadrants of right breast Disposition: 07 LEFT AWOL/ELOPED Is pt being admited?: No Does the pt Need Aspirin: No Condition: Undetermined Instructions: Fibrocystic Breast Changes, Breast Cancer, Female, Breast Cancer Survivor Follow-up, Genomic Testing for Breast Cancer, Breast Self-Awareness, Fibrocystic Breast Changes, [id number] [facility] [Primary Care Provider] - 3-5 Days Time of Disposition: 06:47 Print Language: HEBREW
--- NOTE | 2021-07-25 08:51 | Ultrasound Report ---
ULTRASOUND BREAST RIGHT LIMITED, 07/23/2021 CLINICAL INFORMATION / INDICATION: lump. Patient presents for evaluation of an area of palpable karmen rn in the right breast. Patient has a history of prior left breast cancer. TECHNIQUE: Targeted ultrasound evaluation was performed of the area of interest. COMPARISON: Prior mammogram 07/21/2015 FINDINGS: Targeted ultrasound of the area of palpable concern in the right breast 10:00 position reveals a roun d mixed echogenicity mass measuring up to 5.0 x 5.3 x 5.4 cm. Peripheral vascularity is demonstrated. There appears to be a complex cystic component along the margin of the mass in the 9:00 position anel suring up to 1.9 cm. IMPRESSION: 1. A round mixed echogenicity mass is seen at the site of palpable concern in the right breast and is considered suspicious for malignancy. Ultrasound-guided biopsy is recommended. 2. Additionally, the last mammogram available was performed in 2014. Therefore, recommend a bilateral diagnostic mammogram prior to biopsy. Follow up recommendation: Biopsy BI-RADS Category 4: Suspicious for Malignancy. A normal or "negative" report should not preclude biopsy or follow-up of a clinically suspicious find ing. Signer Name: Isabela Amado MD Signed: 07/25/2021 8:47 AM Workstation Name: [id number]
== END 2021-07-23 06:50 | disposition left against medical advice (07) ==
LOC: ED 13:28
DX: D47.3 Essential (hemorrhagic) thrombocythemia (principal); N63.10 Unspecified lump in the right breast, unspecified quadrant; I10 Essential (primary) hypertension; Z98.890 Other specified postprocedural states; Z88.1 Allergy status to other antibiotic agents; Z85.3 Personal history of malignant neoplasm of breast
CPT/HCPCS: 36415; 80053; 85025; 99283